=== PATIENT | male | born 1985 | race African-American/Black ===

== ENCOUNTER 2018-02-05 00:04 | Emergency (ER) | payer OTHER ==
[~2018-02-05] VITALS: Ht 162.6 cm; Wt 72.0 kg
[2018-02-05] MEDS ORDERED: IBUPROFEN 600MG TABLET PO ONE (01:00)
[2018-02-05 02:14] VITALS: BP 122/78
== END 2018-02-05 02:17 | disposition home or self-care (01) ==
LOC: ER 00:04 → SUPCPDRO 02-06 08:45
DX: S09.8XXA Other specified injuries of head, initial encounter (principal); M54.9 Dorsalgia, unspecified; R51 Headache; Y35.891A Legal intervention involving other specified means, law enforcement official injured, initial encounter; V49.9XXA Car occupant (driver) (passenger) injured in unspecified traffic accident, initial encounter; Y93.89 Activity, other specified; Y92.410 Unspecified street and highway as the place of occurrence of the external cause
CPT/HCPCS: 71045; 99284